=== PATIENT | male | born 1990 | race Caucasian/White ===

== ENCOUNTER 2021-01-09 11:36 | Emergency (ER) | payer OTHER ==
[2021-01-09 12:36] LABS: #Neutrophils 6.4 10x3/uL (1.5-8.4); %Basophils 0.3 % (0.0-2.0); %Eosinophils 0.1 % (0.0-6.0); %Lymphocytes 16.3 % (18.0-47.0); %Monocytes 11.1 % (0.0-10.0); %Neutrophils 70.8 % (40.0-75.0); Hemoglobin 14.5 g/dL (13.5-17.5); Mean Corpuscular HGB CONC 33.2 g/dL (32.0-36.0); Mean Corpuscular Hemoglobin 30.3 pg (27.0-33.0); Mean Corpuscular Volume 91.2 fl (81.2-95.1); Mean Platelet Volume 8.6 fl (7.4-10.4); Platelet Count 482 10x3/uL (150-450); RBC Distribution Width 12.9 % (11.5-14.5); Red Blood Cell (RBC) Count 4.79 10x6/uL (4.32-5.72)
[2021-01-09 12:38] LABS: ALT (SGPT) 66 U/L (8-55); AST (SGOT) 45 U/L (5-34); Albumin 3.7 g/dL (3.5-5.0); Alkaline Phosphatase 43 U/L (40-110); Anion Gap 17 mmol/L (10-20); BUN (Urea Nitrogen) 13 mg/dL (8.9-20.6); Bilirubin, Total 0.5 mg/dL (0.2-1.2); Calc. Creatinine Clearance 0 mL/min (70-130); Calcium 8.8 mg/dL (7.8-10.44); Carbon Dioxide 21 mmol/L (22-29); Chloride 103 mmol/L (98-107); Globulin 4.1 g/dL (2.4-3.5); Glucose 96 mg/dL (70-105); Potassium 4.3 mmol/L (3.5-5.1); Protein, Total 7.8 g/dL (6.0-8.3); Sodium 137 mmol/L (136-145)
[2021-01-09] MEDS ORDERED: Enoxaparin Sodium 100 MG/ML SYRINGE ONE (12:59)
[2021-01-09 13:33] LABS: INR-International Normal Ratio 1.2; PTT 24.8 sec (22.0-33.0); Prothrombin Time 13.5 sec (9.5-12.1)
== END 2021-01-09 14:52 | disposition home or self-care (01) ==
LOC: CSHERS 11:36
DX: I82.432 Acute embolism and thrombosis of left popliteal vein (principal); Z86.16 Personal history of COVID-19
CPT/HCPCS: 80053; 85025; 85610; 85730; 96372; J1650